=== PATIENT | female | born 1955 | race Caucasian/White ===

== ENCOUNTER 2017-04-15 11:06 | Day surgery (SDC) | payer BC ==
[~2017-04-15] VITALS: Ht 170.2 cm; Wt 103.0 kg
[~2017-04-15 11:06] MED LIST: ASPI1TAB PO; ATOR1TAB19 PO; BISO2.5T PO; CITA20TA4 PO; LOSA100T5 PO
[2017-04-15] MEDS ORDERED: VITA200016 PO (11:22)
[2017-04-15] MEDS ORDERED: LIDOCAINE 2% INJ 100 MG/5 ML SDV (FOR ANES.) As Ordered ONE (11:44)
[2017-04-15] MEDS ORDERED: PROPOFOL 200 MG/20 ML VIAL As Ordered ONE ×2 (11:44→12:57)
[2017-04-15] MEDS ORDERED: NS 1,000 ML IV ONE (11:45)
--- NOTE | 2017-04-15 13:06 | ROOR ---
Patient Name: Betty Low Procedure Date: 04/15/2017 12:31 PM Date of : 1955 Age: 61 Room: [facility] Gender: Female Note Status: Finalized Procedure: Total Colonoscopy to Cecum + Bx.+ Carbon Spot Marking Indications: Change in bowel habits Providers: Lee Elizabeth MD Referring MD: Alen Chan MD Requesting Provider: Medicines: Monitored Anesthesia Care Complications: No immediate complications. Procedure: Pre-Anesthesia Assessment: - The heart rate, respiratory rate, oxygen saturations, blood pressure, adequacy of pulmonary ventilation, and response to care were monitored throughout the procedure. The Colonoscope was introduced through the anus and advanced to the cecum, identified by appendiceal orifice and ileocecal valve. The colonoscopy was performed without difficulty. The patient tolerated the procedure well. The quality of the bowel preparation was excellent. Findings: The perianal and digital rectal examinations were normal. Internal hemorrhoids were found during retroflexion. The hemorrhoids were small. Multiple small and large-mouthed diverticula were found in the recto-sigmoid colon, sigmoid colon and descending colon. Localized severe inflammation characterized by shallow ulcerations was found in the mid ascending colon. Biopsies were taken with a cold forceps for histology. Area was tattooed with an injection of Spot (carbon black). The exam was otherwise without abnormality on direct and retroflexion views. Impression: - Internal hemorrhoids. - Diverticulosis in the recto-sigmoid colon, in the sigmoid colon and in the descending colon. - Localized severe inflammation was found in the mid ascending colon secondary to ischemic colitis. Biopsied. Tattooed. - The examination was otherwise normal on direct and retroflexion views. - The exam was otherwise normal to the cecum. Recommendation: - Patient has a contact number available for emergencies. The signs and symptoms of potential delayed complications were discussed with the patient. Return to normal activities tomorrow. Written discharge instructions were provided to the patient. - High fiber diet. - Discharge patient to home. - Continue present medications. - Await pathology results. - Telephone GI clinic for pathology results in 1 week. - Repeat colonoscopy for surveillance based on pathology results. - Return to referring physician. - The findings and recommendations were discussed with the patient's family. Lee Elizabeth MD Lee Elizabeth MD 04/15/2017 1:05:59 PM This report has been signed electronically. Number of Addenda: 0 Note Initiated On: 04/15/2017 12:31 PM Estimated Blood Loss: Estimated blood loss: none.
[2017-04-15 13:25] VITALS: BP 147/95
== END 2017-04-15 13:35 | disposition home or self-care (01) ==
LOC: M OPP 11:06
PROVIDERS: ATTEND Internal Medicine Gastroenterology
DX: R19.4 Change in bowel habit (principal); K64.8 Other hemorrhoids; K57.30 Diverticulosis of large intestine without perforation or abscess without bleeding; K63.3 Ulcer of intestine; I10 Essential (primary) hypertension; E78.5 Hyperlipidemia, unspecified; Z78.0 Asymptomatic menopausal state; R06.83 Snoring; Z79.82 Long term (current) use of aspirin; Z79.899 Other long term (current) drug therapy

== ENCOUNTER → 2017-05-13 | Outpatient (CLI) | payer BC ==
[~2017-05-13] MED LIST changes: +GASTROGRAFIN SOLUTION 30ML (Q9963) As Ordered ONE; +ISOVUE-370 76% 100ML VIAL (Q9967) As Ordered ONE; +VITA200016 PO
--- NOTE | 2017-05-14 07:29 | REP ---
PRE AND POST CONTRAST CT OF THE ABDOMEN AND PELVIS: CLINICAL HISTORY: Abdominal pain with gastroenteritis and colitis. TECHNIQUE: Axial contrast enhanced images from the lung bases to the pubic symphysis using oral (per protocol) and 100 mL of Isovue 370 intravenous contrast material with precontrast and delayed images of the abdomen as well as coronal and sagittal reformations. COMPARISON: None. FINDINGS: The lung bases are clear. The visualized heart and pericardium are normal. Liver, spleen, pancreas, bilateral adrenal glands and kidneys are normal. The patient is status post cholecystectomy. A moderate hiatal hernia is identified at the gastroesophageal junction. The stomach and duodenum are otherwise unremarkable by CT evaluation. The small bowel is without obstruction or acute inflammatory process and the normal terminal ileum is identified in the right lower quadrant. The colon is grossly unremarkable with the exception of scattered colonic diverticula. The cecum and appendix are normal. Evaluation of the pelvis demonstrates partially collapsed normal bladder and age appropriate uterus/adnexa. No pelvic fluid or ascites. No adenopathy. No solitary mass lesion identified. The abdominal aorta and vasculature appears normal and without aneurysm or dissection. Musculoskeletal structures demonstrate age-related degenerative change without focal osseous abnormality. IMPRESSION: 1. Moderate hiatal hernia. 2. Colonic and sigmoid diverticulosis without evidence for acute diverticulitis. No further abnormality to the small and large bowel identified. 3. No further acute abdominopelvic pathology appreciated. Unreviewed
== END ==
LOC: M RAD 09:00
PROVIDERS: ATTEND Surgery
DX: K52.9 Noninfective gastroenteritis and colitis, unspecified (principal)
CPT/HCPCS: 74178; Q9963; Q9967

== ENCOUNTER → 2017-05-15 | Outpatient (CLI) | payer BC ==
[~2017-05-15] MED LIST changes: -GASTROGRAFIN SOLUTION 30ML (Q9963) As Ordered ONE; -ISOVUE-370 76% 100ML VIAL (Q9967) As Ordered ONE
--- NOTE | 2017-05-15 09:25 | REP ---
Right shoulder three views: Mineralization is normal. Acromioclavicular joint is unremarkable. The glenohumeral joint is unremarkable. The subacromial space is normally maintained. There are no calcifications or foreign bodies. There is no fracture or dislocation. Impression: Negative plain film study of the right shoulder. Signed by Patrick Giraldo MD 05/15/2017 09:16 A
== END ==
LOC: M CLY 08:36
PROVIDERS: ATTEND Family Medicine
DX: M75.41 Impingement syndrome of right shoulder (principal)

== ENCOUNTER → 2017-05-18 | Outpatient (REF) | payer BC ==
[2017-05-18 11:41] LABS: BASO # 0.1 10^3/uL (0.0-0.2); BASO % 1.4 % (0.0-1.0); EOS # 0.1 10^3/uL (0.0-0.50); EOS % 2.4 % (0.0-3.0); IMMATURE GRANULOCYTE % 0.4 % (0-0); LYMPH # 1.8 10^3/uL (1.5-4.5); LYMPH % 35.9 % (24.0-44.0); MEAN CORPUSCULAR HEMOGLOBIN 30.6 pg (27.0-33.0); MEAN CORPUSCULAR HGB CONC 33.7 g/dl (32.0-36.5); MEAN CORPUSCULAR VOLUME 90.8 fl (80.0-96.0); MONO # 0.4 10^3/uL (0.0-0.8); MONO % 8.5 % (0.0-5.0); NEUTROPHILS # 2.6 10^3/uL (1.8-7.7); NEUTROPHILS % 51.4 % (36.0-66.0); PLATELET COUNT, AUTOMATED 229 10^3/uL (150-450); RED CELL DISTRIBUTION WIDTH 12.7 % (11.5-14.5); WHITE BLOOD COUNT 5.1 10^3/uL (4.0-10.0)
[2017-05-18 12:19] LABS: ALBUMIN 3.6 GM/DL (3.2-5.2); ALBUMIN/GLOBULIN RATIO 0.97 (1.00-1.93); ALKALINE PHOSPHATASE 87 U/L (45-117); ALT/SGPT 28 U/L (12-78); ANION GAP 6 MEQ/L (8-16); AST/SGOT 18 U/L (7-37); BILIRUBIN,TOTAL 0.5 MG/DL (0.2-1.0); BLOOD UREA NITROGEN 15 MG/DL (7-18); CALCIUM LEVEL 9.1 MG/DL (8.8-10.2); CARBON DIOXIDE LEVEL 31 MEQ/L (21-32); CHLORIDE LEVEL 103 MEQ/L (98-107); CREATININE FOR GFR 0.88 MG/DL (0.55-1.02); GLOMERULAR FILTRATION RATE > 60.0 (>45); GLUCOSE, FASTING 114 MG/DL (80-110); SODIUM LEVEL 140 MEQ/L (136-145); TOTAL PROTEIN 7.3 GM/DL (6.4-8.2)
== END ==
LOC: M SFHCCLAY 08:37
PROVIDERS: ATTEND Family Medicine
DX: K55.9 Vascular disorder of intestine, unspecified (principal); I10 Essential (primary) hypertension; E78.2 Mixed hyperlipidemia; K52.9 Noninfective gastroenteritis and colitis, unspecified

== ENCOUNTER → 2018-01-02 | Outpatient (REF) | payer BC ==
[2018-01-02 21:38] LABS: APPEARANCE, URINE CLOUDY (CLEAR); BACTERIA, URINE AUTO 3+ (NEGATIVE); BILIRUBIN, URINE AUTO NEGATIVE (NEGATIVE); BLOOD, URINE BLOOD NEGATIVE (NEGATIVE); COLOR, URINE YELLOW (YELLOW); GLUCOSE, URINE (UA) AUTO NEGATIVE (NEGATIVE); KETONE, URINE AUTO NEGATIVE (NEGATIVE); LEUKOCYTE ESTERASE, URINE AUTO 1+ (NEGATIVE); NITRITE, URINE AUTO POSITIVE (NEGATIVE); PROTEIN, URINE AUTO NEGATIVE (NEGATIVE); RBC, URINE AUTO 3 /HPF (0-3); SPECIFIC GRAVITY URINE AUTO 1.014 (1.002-1.035); SQUAMOUS EPITHELIAL CELL UR AU 1 /HPF (0-6); UROBILINOGEN, URINE AUTO 0.2 mg/dL (0.0-2.0); WBC, URINE AUTO 74 /HPF (0-3)
== END ==
LOC: M LAB REF 21:17
DX: N39.0 Urinary tract infection, site not specified (principal)
CPT/HCPCS: 81001

== ENCOUNTER → 2018-04-09 | Outpatient (CLI) | payer BC | LOC: M RAD 10:30 | DX: Z12.31 Encounter for screening mammogram for malignant neoplasm of breast (principal) | CPT/HCPCS: 77067 ==

== ENCOUNTER → 2018-05-19 | Outpatient (REF) | payer BC ==
[2018-05-19 11:39] LABS: HEMATOCRIT 39.4 % (36.0-47.0); HEMOGLOBIN 13.3 g/dl (12.0-15.5); MEAN CORPUSCULAR HEMOGLOBIN 31.6 pg (27.0-33.0); MEAN CORPUSCULAR HGB CONC 33.8 g/dl (32.0-36.5); MEAN CORPUSCULAR VOLUME 93.6 fl (80.0-96.0); PLATELET COUNT, AUTOMATED 245 10^3/uL (150-450); RED BLOOD COUNT 4.21 10^6/uL (4.00-5.40); RED CELL DISTRIBUTION WIDTH 12.1 % (11.5-14.5); WHITE BLOOD COUNT 6.1 10^3/uL (4.0-10.0)
[2018-05-19 11:54] LABS: ALBUMIN 3.3 GM/DL (3.2-5.2); ALBUMIN/GLOBULIN RATIO 0.92 (1.00-1.93); ALKALINE PHOSPHATASE 93 U/L (45-117); ALT/SGPT 33 U/L (12-78); ANION GAP 7 MEQ/L (8-16); AST/SGOT 17 U/L (7-37); BILIRUBIN,TOTAL 0.4 MG/DL (0.2-1.0); BLOOD UREA NITROGEN 17 MG/DL (7-18); CALCIUM LEVEL 8.5 MG/DL (8.8-10.2); CARBON DIOXIDE LEVEL 29 MEQ/L (21-32); CHLORIDE LEVEL 104 MEQ/L (98-107); CHOLESTEROL LEVEL 164 MG/DL (<200); CHOLESTEROL RISK RATIO 2.827 (<5); CREATININE FOR GFR 0.85 MG/DL (0.55-1.30); GLOMERULAR FILTRATION RATE > 60.0 (>45); GLUCOSE, FASTING 103 MG/DL (70-100); HDL CHOLESTEROL 58 MG/DL (>40); LDL CHOLESTEROL 78 MG/DL (<100); NON-HDL-C 106 MG/DL; POTASSIUM SERUM 4.1 MEQ/L (3.5-5.1); SODIUM LEVEL 140 MEQ/L (136-145); TOTAL PROTEIN 6.9 GM/DL (6.4-8.2); TRIGLYCERIDES LEVEL 138 MG/DL (<150)
[2018-05-19 16:33] LABS: ESTIMATED AVERAGE GLUCOSE 126 MG/DL (60-110)
== END ==
LOC: M SFHCCLAY 07:56
DX: K55.9 Vascular disorder of intestine, unspecified (principal); I10 Essential (primary) hypertension; E78.2 Mixed hyperlipidemia; R73.01 Impaired fasting glucose
CPT/HCPCS: 84443

== ENCOUNTER → 2018-05-21 | Outpatient (REF) | payer BC ==
[2018-05-21 16:44] LABS: TOTAL PROTEIN 7.2 GM/DL (6.4-8.2)
[2018-05-24 11:51] LABS: ALBUMIN 3.97 GM/DL (3.29-5.55); ALBUMIN % 55.2 % (55.8-66.1); ALPHA-1-GLOBULIN % 4.8 % (2.9-4.9); ALPHA-1-GLOBULINS 0.35 GM/DL (0.17-0.41); ALPHA-2-GLOBULINS 0.82 GM/DL (0.42-0.99); ALPHA-2-GLOBULINS % 11.4 % (7.1-11.8); BETA-1-GLOBULINS 0.52 GM/DL (0.28-0.60); BETA-1-GLOBULINS % 7.2 % (4.7-7.2); BETA-2-GLOBULINS 0.47 GM/DL (0.19-0.55); BETA-2-GLOBULINS % 6.5 % (3.2-6.5); GAMMA GLOBULIN % 14.9 % (11.1-18.8); GAMMA GLOBULINS 1.07 GM/DL (0.65-1.58)
== END ==
LOC: M SFHCCLAY 11:39
PROVIDERS: ATTEND Family Medicine
DX: D89.2 Hypergammaglobulinemia, unspecified (principal)

== ENCOUNTER → 2018-12-02 | Outpatient (REF) | payer BC ==
[~2018-12-02] MED LIST changes: -ASPI1TAB PO; +ASPI81TA26 PO; -CITA20TA4 PO; +CITA20TA6 PO
[2018-12-02 16:45] LABS: HEMATOCRIT 41.1 % (36.0-47.0); HEMOGLOBIN 13.6 g/dl (12.0-15.5); MEAN CORPUSCULAR HEMOGLOBIN 30.9 pg (27.0-33.0); MEAN CORPUSCULAR HGB CONC 33.1 g/dl (32.0-36.5); MEAN CORPUSCULAR VOLUME 93.4 fl (80.0-96.0); PLATELET COUNT, AUTOMATED 220 10^3/uL (150-450); WHITE BLOOD COUNT 6.9 10^3/uL (4.0-10.0)
== END ==
LOC: M SFHCCLAY 09:52
PROVIDERS: ATTEND Family Medicine
DX: K55.9 Vascular disorder of intestine, unspecified (principal)

== ENCOUNTER → 2019-04-11 | Outpatient (REF) | payer BC ==
[2019-04-14 14:13] LABS: HPV HYBRID CAPTURE II Negative (Negative)
== END ==
LOC: M LAB REF 19:51
PROVIDERS: ATTEND Advanced Practice Midwife
DX: Z12.4 Encounter for screening for malignant neoplasm of cervix (principal)
CPT/HCPCS: 87624; G0123

== ENCOUNTER → 2019-04-11 | Outpatient (CLI) | payer BC ==
--- NOTE | 2019-04-11 13:37 | REPMRS ---
Patient History The patient states she had a clinical breast exam in April 2019.Family history of unknown cancer at age 81 in mother. Benign excisional biopsy of the right breast. Took hormonal contraceptives for 5 years. Took unspecified hormones for 10 years. Digital Mammo Screening Bilat: April 11, 2019 - Exam #: [id number] Bilateral CC and MLO view(s) were taken. Technologist: Blsosom Jauregui, Technologist Prior study comparison: April 09, 2018, bilateral digital mammo screening bilat performed at [facility]. April 06, 2017, bilateral digital mammo screening bilat performed at [facility]. March 31, 2016, bilateral digital mammo screening bilat performed at [facility]. FINDINGS: There are scattered fibroglandular densities. There has been no change in the appearance of the mammogram from the prior studies. There is a mild amount of scattered fibroglandular density which is fairly symmetric. There is no interval development of dominant mass, architectural distortion, or grouped microcalcification suggestive of malignancy. 3-D tomosynthesis shows no additional findings. Assessment: BI-RADS/ACR category 1 mammogram. Negative Mammogram. Recommendation Routine screening mammogram of both breasts in 1 year (for women over age 40). This patient's Lifetime Breast Cancer Risk is estimated at 5.0 %. This mammogram was interpreted with the aid of an FDA-approved computer-aided dectection system. Electronically Signed By: Franky Calvin MD 04/11/19 [id number]
== END ==
LOC: M RAD 12:51
PROVIDERS: ATTEND Advanced Practice Midwife
DX: Z12.31 Encounter for screening mammogram for malignant neoplasm of breast (principal)

== ENCOUNTER → 2019-05-17 | Outpatient (REF) | payer BC ==
[2019-05-17 13:22] LABS: ALBUMIN 3.6 GM/DL (3.2-5.2); ALT/SGPT 30 U/L (12-78); BILIRUBIN,TOTAL 0.6 MG/DL (0.2-1.0); BLOOD UREA NITROGEN 18 MG/DL (7-18); CARBON DIOXIDE LEVEL 32 MEQ/L (21-32); CHLORIDE LEVEL 103 MEQ/L (98-107); CHOLESTEROL LEVEL 191 MG/DL (<200); CHOLESTEROL RISK RATIO 2.938 (<5); CREATININE FOR GFR 0.84 MG/DL (0.55-1.30); GLOMERULAR FILTRATION RATE > 60.0 (>45); GLUCOSE, FASTING 122 MG/DL (70-100); HDL CHOLESTEROL 65 MG/DL (>40); LDL CHOLESTEROL 93 MG/DL (<100); NON-HDL-C 126 MG/DL; POTASSIUM SERUM 3.6 MEQ/L (3.5-5.1); SODIUM LEVEL 140 MEQ/L (136-145); TOTAL PROTEIN 6.9 GM/DL (6.4-8.2); TRIGLYCERIDES LEVEL 164 MG/DL (<150)
== END ==
LOC: M SFHCCLAY 07:51
PROVIDERS: ATTEND Family Medicine
DX: I10 Essential (primary) hypertension (principal); E78.2 Mixed hyperlipidemia; K55.9 Vascular disorder of intestine, unspecified

== ENCOUNTER → 2019-12-22 | Outpatient (REF) | payer BC ==
[~2019-12-22] MED LIST changes: +ACET-897 PO; +BISO1TAB17 PO; +CALC600T60 PO; +D31000TA2 PO; +MULT-90 PO; +PERC5TAB12 PO; +PROBCAP14 PO; +XARE10TA PO
== END ==
LOC: M SFHCCLAY 09:05
PROVIDERS: ATTEND Family Medicine
DX: R30.0 Dysuria (principal)

== ENCOUNTER → 2020-02-07 | Outpatient (CLI) | payer BC ==
[2020-02-07 13:37] LABS: HEMATOCRIT 41.4 % (36.0-47.0); HEMOGLOBIN 13.7 g/dl (12.0-15.5); MEAN CORPUSCULAR HEMOGLOBIN 31.3 pg (27.0-33.0); MEAN CORPUSCULAR HGB CONC 33.1 g/dl (32.0-36.5); MEAN CORPUSCULAR VOLUME 94.5 fl (80.0-96.0); PLATELET COUNT, AUTOMATED 199 10^3/uL (150-450); RED BLOOD COUNT 4.38 10^6/uL (4.00-5.40); WHITE BLOOD COUNT 4.9 10^3/uL (4.0-10.0)
[2020-02-07 13:44] LABS: ALBUMIN 3.7 GM/DL (3.2-5.2); ALT/SGPT 34 U/L (12-78); BILIRUBIN,TOTAL 0.5 MG/DL (0.2-1.0); BLOOD UREA NITROGEN 14 MG/DL (7-18); CALCIUM LEVEL 9.4 MG/DL (8.8-10.2); CARBON DIOXIDE LEVEL 31 MEQ/L (21-32); CHLORIDE LEVEL 104 MEQ/L (98-107); CREATININE FOR GFR 0.76 MG/DL (0.55-1.30); GLOMERULAR FILTRATION RATE > 60.0 (>45); GLUCOSE, FASTING 109 MG/DL (70-100); INR 0.94; POTASSIUM SERUM 4.3 MEQ/L (3.5-5.1); PROTHROMBIN TIME 12.8 SECONDS (11.8-14.0); SODIUM LEVEL 141 MEQ/L (136-145)
[2020-02-07 14:24] LABS: ERYTHROCYTE SEDIMENTATION RATE 21 mm/hr (0-30)
--- NOTE | 2020-03-06 13:47 | REP ---
CHEST X-RAY: CLINICAL: Preoperative assessment. TECHNIQUE: PA and lateral views COMPARISON: 10/20/14 FINDINGS: Mediastinum and cardiac silhouette are normal. Lung reich are clear. No consolidation, effusion or pneumothorax. Skeletal structures are intact. IMPRESSION: Normal chest x-ray. No acute cardiopulmonary process. MTDD
== END ==
LOC: M WUC 10:20
PROVIDERS: ATTEND Orthopaedic Surgery
DX: Z01.818 Encounter for other preprocedural examination (principal)

== ENCOUNTER → 2020-02-10 | Outpatient (CLI) | payer BC | LOC: M LABSMTC 13:57 | PROVIDERS: ATTEND Anesthesiology | DX: Z11.59 Encounter for screening for other viral diseases (principal) ==

== ENCOUNTER 2020-02-15 09:14 | Inpatient (IN) | payer BC ==
[~2020-02-15] VITALS: Ht 170.2 cm; Wt 110.7 kg
[~2020-02-15 09:14] MED LIST changes: -ACET-897 PO; -CALC600T60 PO; -PERC5TAB12 PO; -XARE10TA PO; +amLODIPine 5 MG TAB PO SCH; +ceFAZolin SOD 2 GM in IV 1 EA IV ONE
[2020-02-15] MEDS ORDERED: ACET-897 PO (10:13)
[2020-02-15] MEDS ORDERED: propofoL 200 MG/20 ML VIAL As Ordered ONE ×3 (11:00→13:43)
[2020-02-15] MEDS ORDERED: LIDOCAINE 2% 100MG/5ML SDV (FOR ANES.) As Ordered ONE (11:00)
[2020-02-15] MEDS ORDERED: MIDAZOLAM INJ 2MG/2ML VIAL (J2250 PER 1MG) As Ordered ONE (11:17)
[2020-02-15] MEDS ORDERED: fentaNYL 100 MCG/2 ML INJECTION (J3010) As Ordered ONE (11:17)
[2020-02-15] MEDS: MIDAZOLAM INJ 2MG/2ML VIAL (J2250 PER 1MG) IV PRN ×2 (11:36→11:41)
[2020-02-15] MEDS ORDERED: TRANEXAMIC ACID 100 MG/ML 10ML VIAL As Ordered ONE (12:18)
[2020-02-15] MEDS ORDERED: ceFAZolin 1GM VIAL (J0690 PER 500MG) As Ordered ONE (12:19)
[2020-02-15] MEDS ORDERED: EPINEPHrine INJ 1 MG/ML 1ML AMP As Ordered ONE (12:19)
[2020-02-15] MEDS ORDERED: BUPIVACAINE LIPOSOME/PF 1.3% 20ML VIAL (13.3MG/ML)(EXPAREL)(C9290 PER1MG) As Ordered ONE (12:19)
[2020-02-15] MEDS ORDERED: fentaNYL 100 MCG/2 ML INJECTION (J3010) IV PRN ×2 (12:30→14:30)
[2020-02-15] MEDS ORDERED: ONDANSETRON 4MG/2ML VIAL As Ordered ONE (13:11)
[2020-02-15] MEDS ORDERED: dexameTHASONE 4 MG/ML 1ML VIAL (J1100 PER 1MG) As Ordered ONE (13:11)
[2020-02-15] MEDS ORDERED: METOCLOPRAMIDE INJ 10MG/2ML VIAL (J2765 PER 1) As Ordered ONE (13:11)
[2020-02-15] MEDS ORDERED: ROPIvacaine 0.5% 30ML INJECTION (J2795 PER 1MG) ONE (13:50)
[2020-02-15] MEDS ORDERED: dexameTHASONE 10MG/1ML VIAL PRES.FREE (J1100 PER 1MG) ONE (13:50)
[2020-02-15] MEDS ORDERED: LIDOCAINE 1% MDV 20ML VIAL ONE (13:50)
[2020-02-15] MEDS ORDERED: oxyCODONE 5MG TAB PO PRN (14:30)
[2020-02-15] MEDS ORDERED: ONDANSETRON 4MG/2ML VIAL IV PRN ×2 (14:30→14:45)
[2020-02-15] MEDS ORDERED: LR 1,000 ML IV SCH ×2 (14:30→14:45)
[2020-02-15] MEDS ORDERED: MORPHINE 4 MG/ML 1ML VIAL/SYRINGE (J2270) IV PRN (14:45)
[2020-02-15] MEDS ORDERED: ACETAMINOPHEN TAB 650MG DOSE (2X325MG) PO PRN (14:45)
[2020-02-15] MEDS ORDERED: MORPHINE 2 MG/ML 1ML VIAL (J2270) IV PRN (14:45)
--- NOTE | 2020-02-15 14:52 | REPVR ---
PROCEDURE INFORMATION: Exam: XR Left Knee Exam date and time: 02/15/2020 2:40 PM Age: 64 years old Clinical indication: Screening exam; Post op; Prior surgery; Surgery date: Post-operative (0-2 days); Additional info: Post op in pacu TECHNIQUE: Imaging protocol: XR Left knee. Views: 1 or 2 views. COMPARISON: No relevant prior studies available. FINDINGS: Bones/joints: Left TKA. Hardware appears intact. Superior patellar enthesophyte. No acute fracture. No dislocation. Soft tissues: Ventral skin von. Expected postsurgical changes in the soft tissues. IMPRESSION: Intact left TKA. Electronically signed by: Crystal Mendez On 02/15/2020 14:51:59 PM
[2020-02-15 15:30] VITALS: BP 153/69
[2020-02-15 16:00] VITALS: BP 125/55
--- NOTE | 2020-02-15 16:01 | HPEPDOC ---
General Date of Admission Feb 15, 2020 at 09:14 Date of Service: Feb 15, 2020 Chief Complaint The patient is a 64-year-old female admitted with a reason for visit of Osteoarthritis Left Knee. History of Present Illness Consultation report Consultation requested By orthopedics. Consultation for the management of medical comorbidities. HPI: 64 year old female with advanced OA, HTN, depression, Obesity, Hyp erlipidemia admitted for elective left total knee replacement. Patient had an uneventful surgery. Hospitalist consulted for management of medical comorbidities. Patient seen in PACU after surgery. No pain, Got addector block and also local block. Denies any nausea or vomiting, denies any chest pain or sob Home Medications Scheduled Aspirin (Aspirin EC) 81 Mg Tab, 81 MG PO DAILY, (Reported) Atorvastatin Calcium (Atorvastatin Calcium) 10 Mg Tab, 10 MG PO DAILY, (Reported) Bisoprolol/Hydrochlorothiazide (Bisoprolol-Hctz 2.5-6.25 mg Tb) 1 Each Tablet, 1 TAB PO DAILY, (Reported) Cholecalciferol (Vitamin D3) (Vitamin D3) 1,000 Unit Tablet, 2,000 UNITS PO DAILY, (Reported) Citalopram Hydrobromide (Citalopram HBr) 20 Mg Tab, 40 MG PO DAILY, (Reported) Lactobacillus Acidophilus (Probiotic) 1 Each Capsule, 1 CAP PO DAILY, (Reported) Losartan/Hydrochlorothiazide (Losartan-Hctz 100-25 mg Tab) 1 Tab Tab, 1 TAB PO DAILY, (Reported) Multivitamin (Multivitamin) 1 Each Tablet, 1 EACH PO DAILY, (Reported) Miscellaneous Medications Acetaminophen (Tylenol Extra Strength) 500 Mg Tablet, 500 MG PO, (Reported) Allergies Coded Allergies: No Known Allergies (Unverified , 04/13/17) Past Medical History Medical History DEPRESSION OSTEOARTHRITIS LEFT HIP DIVERTICULOSIS HTN SYMPTOMATIC HEMORRHOID PLANTAR FASCIAL FIBROMATOSIS Hyperlipidemia Obesity Surgical History LUMPECTOMY LEFT BREAST BENIGN HEEL SPUR RIGHT FOOT 1998 BLADDER TUCK COLONOSCOPY 2004, DR. MAN. GALLBLADDER LEFT FOOT HEEL SPUR REMOVED. 04/18/2010 LEAP PROCEDURE Family History FATHER: , UNKNOWN MOTHER: , DM, KIDNEY CA., DJD MOTHER, SIBLINGS: DJD IN SIBS AT FAIRLY EARLY AGE. 7 BROTHER(S) , 1 SISTER(S) . 2DAUGHTER(S) . DIABETES, HTN, HEART DISEASE, KIDNEY CANCER. Social History * Smoker: former Smoker Alcohol: occationally Drugs: denies A-FIB/CHADSVASC A-FIB History Current/History of A-Fib/PAF?: No Review of Systems Constitutional: Denies: Chills, Fever, Night Sweats Eyes: Denies: Pain, Vision change ENT: Denies: Head Aches, Ear Pain, Dysphagia Skin: Denies: Rash, Lesions, Breakdown Pulmonary: Denies: Dyspnea, Cough Cardiovascular: Denies: Chest Pain, Palpitations, Orthopnea, Paroxysmal Noc. Dyspnea, Lt Headedness Gastrointestinal: Denies: Nausea, Vomiting, Abdominal Pain, Diarrhea Genitourinary: Denies: Dysuria, Frequency, Incontinence, Retention Hematologic: Denies: Bruising, Bleeding Excessively Physical Examination General Exam: Positive: Alert, Cooperative, No Acute Distress Eye Exam: Positive: PERRLA, Conjunctiva & lids normal, EOMI; Negative: Sclera icteric ENT Exam: Positive: Atraumatic, Mucous membr. moist/pink, Pharynx Normal Neck Exam: Positive: Supple; Negative: JVD, thyromegaly Chest Exam: Positive: Clear to auscultation, Normal air movement Heart Exam: Positive: Rate Normal, Regular Rhythm, Normal S1, Normal S2; Negative: Murmurs, Rubs Telemetry: Positive: No significant arrhythmia Abdomen Exam: Positive: Normal bowel sounds, Soft; Negative: Tenderness, Hepatospenomegaly Extremity Exam: Positive: Normal pulses; Negative: Clubbing, Cyanosis, Edema Skin Exam: Positive: Nl turgor and temperature; Negative: Breakdown, Lesion Vital Signs Vital Signs Date Time Temp Pulse Resp B/P (MAP) Pulse Ox O2 Delivery O2 Flow Rate FiO2 02/15/20 12:30 57 18 146/67 (93) 99 Nasal Cannula 3 02/15/20 09:42 98.0 Assessment/Plan 64 year old female with advanced OA, HTN, depression, Obesity, Hyperlipidemia admitted for elective left total knee replacement. Patient had an uneventful surgery. Hospitalist consulted for management of medical comorbidities. S/p Left Total Knee Replacement pain control and dvt prophylaxis as epr Ortho PT/OT Hypertension continue bisoprolol will hold losartan and HCTZ for today will give amlodipine if needed Depression continue citalopram Hyperlipidemia continue statin. Plan / VTE VTE Prophylaxis Ordered?: Yes RANULFO DILLARD MD Feb 15, 2020 13:23
[2020-02-15 17:00] VITALS: BP 127/55
--- NOTE | 2020-02-15 17:42 | HPE ---
DATE OF ADMISSION: 02/15/2020 ATTENDING: Leo Duffy MD CHIEF COMPLAINT: Left knee pain. HISTORY OF PRESENT ILLNESS: Betty is a pleasant 64-year-old female with progressively worsening left knee pain and stiffness. She has failed to improve with conservative treatment. She has elected for surgery for her continued symptoms. She has pain with weightbearing activities and her activities of daily living. X-rays of her knee are notable for advanced osteoarthritis of the left knee joint. She is consented for a left total knee arthroplasty by Dr. Leo Duffy. Medical optimization was performed by Dr. Chan. ALLERGIES: None. CURRENT MEDICATIONS: - Atorvastatin 10 mg once a day. - Citalopram 20 mg once a day. - Losartan 100/25 mg once a day. - Bisoprolol 2.5/6.25 mg once a day. - Probiotic supplement once a day. - Baby aspirin once a day. - Adult multivitamin once a day. - Vitamin D 2000 units once a day. PAST MEDICAL HISTORY: 1. Hypertension. 2. Hyperlipidemia. 3. Anxiety. PAST SURGICAL HISTORY: 1. Cholecystectomy. 2. Bladder suspension. SOCIAL HISTORY: Lissette is retired, does not smoke, and occasionally drinks alcohol. FAMILY HISTORY: Noncontributory. REVIEW OF SYSTEMS: This patient denies chest pain, heart palpitations, cough, wheezing, difficulty breathing, or shortness of breath. She denies abdominal pain, nausea, vomiting, diarrhea, or constipation. She denies upper respiratory infection or urinary tract infection symptoms. She does complain of persistent pain in the left knee. PHYSICAL EXAMINATION: GENERAL: She is a well-nourished, well-developed, in no acute distress, alert female patient. She walks with a moderate limp favoring the left lower extremity. She is using a single leg cane. VITAL SIGNS: She is 5 feet 7 inches and weighs 240 pounds, temperature 97.5, blood pressure 112/88, pulse 88, and respirations 18. NECK: Supple without adenopathy or jugular venous distention. There were no carotid bruits appreciated upon auscultation. LUNGS: Clear to auscultation without rales or wheezes throughout. HEART: Regular rate and rhythm. ABDOMEN: Bowel sounds were present. EXTREMITIES: Examination of the knee revealed intact skin. She had decreased range of motion due to pain and stiffness. The limb was neurovascularly intact. LABORATORY DATA: EKG showed normal sinus rhythm at 70 beats per minute. Pro time was 12.8, INR 0.94. Glucose 109, BUN 14, creatinine 0.76, sodium 141, potassium 4.3. CBC was within normal limits. Sed rate was 21. We are pending a chest x-ray result. IMPRESSION: Symptomatic osteoarthritis of the left knee joint. PLAN: Consented for a left total knee arthroplasty by Dr. Leo Duffy pending x-rays results. [facility]
[2020-02-15 18:00] VITALS: BP 124/62
[2020-02-15 18:32] VITALS: BP 126/55
[2020-02-15 20:00] VITALS: BP 125/63
[2020-02-15] MEDS: ceFAZolin SOD 2 GM in IV 1 EA IV SCH (20:20)
[2020-02-15] MEDS: PERCOCET 5MG/325MG TAB PO PRN (20:20)
[2020-02-16 02:00] VITALS: BP 138/54
[2020-02-16] MEDS: PERCOCET 5MG/325MG TAB PO PRN ×2 (02:30→11:40)
[2020-02-16] MEDS: ceFAZolin SOD 2 GM in IV 1 EA IV SCH (04:51)
[2020-02-16 06:00] VITALS: BP 146/57
[2020-02-16] MEDS ORDERED: XARE10TA PO (06:36)
[2020-02-16] MEDS ORDERED: PERC5TAB12 PO (06:36)
[2020-02-16 06:39] LABS: HEMATOCRIT 34.3 % (36.0-47.0); HEMOGLOBIN 11.5 g/dl (12.0-15.5); MEAN CORPUSCULAR HEMOGLOBIN 31.3 pg (27.0-33.0); MEAN CORPUSCULAR HGB CONC 33.5 g/dl (32.0-36.5); MEAN CORPUSCULAR VOLUME 93.5 fl (80.0-96.0); PLATELET COUNT, AUTOMATED 190 10^3/uL (150-450); RED BLOOD COUNT 3.67 10^6/uL (4.00-5.40); WHITE BLOOD COUNT 12.2 10^3/uL (4.0-10.0)
[2020-02-16 07:16] LABS: BLOOD UREA NITROGEN 12 MG/DL (7-18); CALCIUM LEVEL 8.6 MG/DL (8.8-10.2); CARBON DIOXIDE LEVEL 29 MEQ/L (21-32); CHLORIDE LEVEL 105 MEQ/L (98-107); CREATININE FOR GFR 0.77 MG/DL (0.55-1.30); GLOMERULAR FILTRATION RATE > 60.0 (>45); GLUCOSE, FASTING 144 MG/DL (70-100); POTASSIUM SERUM 3.9 MEQ/L (3.5-5.1); SODIUM LEVEL 137 MEQ/L (136-145)
[2020-02-16] MEDS ORDERED: CitaloPRAM (CeleXA) 20 MG TAB PO SCH (09:00)
[2020-02-16] MEDS ORDERED: MOM 30ML SUSPENSION UDC PO SCH (09:00)
[2020-02-16] MEDS ORDERED: LOSARTAN 50MG TABLET PO SCH (09:00)
[2020-02-16] MEDS ORDERED: MIRALAX *UNIT DOSE* 17GM PACKET PO SCH (09:00)
[2020-02-16] MEDS ORDERED: BISOPROLOL FUM 2.5 MG PER 1/2TAB PO SCH (09:00)
[2020-02-16 09:39] VITALS: BP 146/57
--- NOTE | 2020-02-16 11:53 | IPN ---
DATE: 02/15/2020 SUBJECTIVE: Patient seen and examined. She wished to go with a left total knee arthroplasty. She understands the need for this. The risks of bleeding, infection, damage to nerves, vessels, persistent pain, wear loosening, blood clots, medical problems, and among others. [place]
[2020-02-16] MEDS ORDERED: RIVAROXABAN 10 MG TAB (XARELTO) PO SCH (18:00)
[2020-02-17] MEDS ORDERED: XARE10TA PO (12:15)
[2020-02-17] MEDS ORDERED: PERC5TAB12 PO (12:15)
[2020-02-17] MEDS ORDERED: CALC600T60 PO (12:15)
--- NOTE | 2020-03-05 10:09 | RO ---
DATE OF OPERATION: 02/15/2020 PREOPERATIVE DIAGNOSIS: Left knee osteoarthritis. POSTOPERATIVE DIAGNOSIS: Left knee osteoarthritis. PROCEDURE: Left total knee arthroplasty; ATTUNE rotating platform, size 5 femur, size 4 tibia, 8 polyethylene, 32 patellar button, posterior stabilized. SURGEON: Leo Duffy M.D. SHIPPING INSPECTOR: EDNA Walker ANESTHESIA: Spinal. ESTIMATED BLOOD LOSS: 50. COMPLICATIONS: None. INDICATIONS: A 64 year old with gradually worsening knee pain with severe arthritis and wished to go ahead with knee replacement. The assistant infant teacher was instrumental in holding the retractors, and assisting in mixing the bone cement, and assisting in wound closure. PROCEDURE: The patient was taken to the operating room and placed in the supine position after spinal anesthesia was induced. The left lower extremity was prepped and draped in the usual sterile fashion. A timeout was performed, and tourniquet was inflated. I created a longitudinal incision over the anterior aspect of the knee and sharply dissection down through subcutaneous tissue, which was fairly copious. I did a medial parapatellar arthrotomy and everted the patella with some difficulty, and flexed the knee up. Her obesity made this more challenging. I used the canal-initiating reamer on the femoral side, used intramedullary guide set at 5 degrees of valgus and 9 mm cut. This was pinned in place and a distal femoral cut was made protecting soft tissues. I sized the femur to be a 5 and the cutting block was secured to the pins that were placed in the end of the femur with some external rotation dialed in. The remaining cuts were made protecting soft tissues. We then prepared the tibia. The tibial alignment guide was placed in an appropriate amount of valgus and posterior slope. This was pinned in place 4 mm off the low side, which was 10 off the high side. The proximal tibia cut was made protecting soft tissues and this bone was removed. I then used a trouble operator to remove soft tissue from either side of the knee, and osteophytes. The soft tissue balance seemed to be appropriate. I had done a medial release. I then used the spacer blocks and was deciding between an 8 and a 10, and decided to trial the components for sizing of the polyethylene with the trial components. Posterior cruciate ligament (PCL) was intact. I then prepared the sulcus cut on the femur with the cutting guide and the saw, and prepared the tibia. The size 4 tray fit nicely. I secured this in place, drilled, broached, and then trial components were placed with the 8 and a 10. The 10 was a little tight in flexion. The polyethylene was spitting out some even though I felt that the PCL was appropriately released. It also felt a little tight in extension so I decided to go with the 8 and this had excellent stability, excellent range of motion. The patella was free-hand cut removing about 7 mm of bone and sized to be a 32. The drill holes were placed and the trial button was placed which tracked very nicely. I also placed the drill holes in the end of the femur. The trial components were removed, the Exparel was injected in the deep tissues. The surfaces were copiously irrigated and dried. The assistant infant teacher prepared the bone cement in the modern technique. I then cemented on the tibia, placed the polyethylene, cemented on the femur and impacted this in place, and then removed all excess bone cement. The patella was cemented in place and held in place with a clamp. I irrigated copiously, placed the TXA in the deep wound and we made sure that the components were well seated and all excess bone cement was removed. Then I began closing the deep layer with #1 Vicryl suture and a running STRATAFIX suture proximally; removed the patellar clamp when the cement was hardened, and closed the remaining with the running STRATAFIX suture. The knee had good range of motion, smooth, had excellent stability and alignment. Patella was tracking nicely. The subcutaneous was irrigated and subcutaneous was closed with 2-0 Vicryl and skin with von. Sterile dressings was applied. The tourniquet had been deflated. She was taken to the recovery room in stable condition. There were no known complications. This was coded as an unusually difficult procedure because her BMI was approximately 38. She had significantly larger soft tissue window and did have severe arthritis. The procedure was more complicated as a result and took extra time. SEBLE
--- NOTE | 2020-04-09 11:14 | DS ---
DATE OF ADMISSION: 02/15/2020 DATE OF DISCHARGE: 02/16/2020 ATTENDING PHYSICIAN: Dr. Leo Duffy ADMITTING DIAGNOSIS: Left knee osteoarthritis. OTHER DIAGNOSES: 1. Hypertension. 2. Hyperlipidemia. 3. Anxiety. DISCHARGE DIAGNOSIS: Left knee osteoarthritis, status post left total knee arthroplasty. HISTORY: Patient is a 64-year-old female who had progressively worsening left knee pain and stiffness. She failed to improve with conservative measures. She continued to have symptoms with weightbearing activities and activities of daily living. She consented for an elective left total knee arthroplasty with Dr. Duffy for her continued symptoms. OPERATION PERFORMED: Left total knee arthroplasty. HOSPITAL COURSE: The patient underwent a left total knee arthroplasty under spinal anesthesia, which was uneventful. Her hospital course was without complication, and she was up with physical therapy per their protocol, weightbearing as tolerated on the left lower extremity. Patient was discharged on oral pain medications and will resume her preoperative medications and diet. She will use her thromboembolic deterrent stockings and take her anticoagulant postoperatively to prevent deep venous thrombosis. Patient will followup in our office in 12-14 days for a wound check and staple removal. She is encouraged to contact our office sooner if there is any increase in pain, redness, drainage, numbness or tingling in the extremity, fever greater than 101 degrees, or any other concerns. Please see medical records for additional details. SEBLE
== END 2020-02-16 13:27 | disposition home or self-care (01) | DRG 302 ==
LOC: M OR 09:14 → M MS5PR 15:18
PROVIDERS: ADMIT Orthopaedic Surgery; ATTEND Orthopaedic Surgery
PROC: 0SRD0J9 Replacement of Left Knee Joint with Synthetic Substitute, Cemented, Open Approach (ICD-10-PCS; principal; 2020-02-15 11:00)
DX: M17.12 Unilateral primary osteoarthritis, left knee (principal); Z79.899 Other long term (current) drug therapy; I10 Essential (primary) hypertension; E78.5 Hyperlipidemia, unspecified; F41.9 Anxiety disorder, unspecified; E66.9 Obesity, unspecified; Z79.82 Long term (current) use of aspirin; K57.30 Diverticulosis of large intestine without perforation or abscess without bleeding; K64.8 Other hemorrhoids; Z87.891 Personal history of nicotine dependence; F32.9 Major depressive disorder, single episode, unspecified

== ENCOUNTER 2020-02-17 08:29 | Observation (INO) | payer BC ==
[~2020-02-17] VITALS: Ht 170.2 cm; Wt 109.1 kg
[~2020-02-17 08:29] MED LIST changes: +ACET-897 PO; +PERC5TAB12 PO; +XARE10TA PO; -amLODIPine 5 MG TAB PO SCH; -ceFAZolin SOD 2 GM in IV 1 EA IV ONE
[2020-02-17 09:09] LABS: BASO # 0.1 10^3/uL (0.0-0.2); BASO % 0.7 % (0.0-1.0); EOS # 0.1 10^3/uL (0.0-0.5); EOS % 0.9 % (0.0-3.0); HEMATOCRIT 33.5 % (36.0-47.0); HEMOGLOBIN 10.9 g/dl (12.0-15.5); LYMPH # 2.2 10^3/uL (1.5-5.0); LYMPH % 30.1 % (24.0-44.0); MEAN CORPUSCULAR HGB CONC 32.5 g/dl (32.0-36.5); MEAN CORPUSCULAR VOLUME 95.2 fl (80.0-96.0); MONO # 0.6 10^3/uL (0.0-0.8); MONO % 7.5 % (0.0-5.0); NEUTROPHILS # 4.5 10^3/uL (1.5-8.5); NEUTROPHILS % 60.4 % (36.0-66.0); PLATELET COUNT, AUTOMATED 161 10^3/uL (150-450); RED BLOOD COUNT 3.52 10^6/uL (4.00-5.40); WHITE BLOOD COUNT 7.5 10^3/uL (4.0-10.0)
--- NOTE | 2020-02-17 09:26 | REPVR ---
PROCEDURE INFORMATION: Exam: US Duplex Left Lower Extremity Veins, Limited Exam date and time: 02/17/2020 9:09 AM Age: 64 years old Clinical indication: Swelling (edema) of limb; Lower extremity, left; Prior surgery; Surgery date: Post-operative (0-2 days); Surgery type: Lt knee replacement on 02/15/2020; Additional info: Post op TECHNIQUE: Imaging protocol: Real-time Duplex ultrasound of the Left Lower Extremity with 2-D vega scale, color Doppler flow and spectral waveform analysis with image documentation. Limited exam focused on the left lower extremity veins. COMPARISON: No relevant prior studies available. FINDINGS: Left deep veins: Unremarkable. The common femoral, femoral, proximal profunda femoral and popliteal veins are patent without thrombus. Normal Doppler waveforms. Normal compressibility and/or augmentation response. Left superficial veins: Unremarkable. Saphenofemoral junction is patent without thrombus. Soft tissues: There is a 7 cm complex collection within the left popliteal fossa. The calf veins were not imaged on this exam. IMPRESSION: 1. No evidence of deep vein thrombosis from the knee superiorly. The calf veins were not imaged on this exam. 2. Large complex collection within the popliteal fossa. In the postoperative setting, underlying infection cannot be excluded. Electronically signed by: Efraín Powers On 02/17/2020 09:26:02 AM
[2020-02-17 09:28] LABS: BLOOD UREA NITROGEN 15 MG/DL (7-18); C REACTIVE PROTEIN QUANTITATIV 2.49 MG/DL (0.00-0.30); CALCIUM LEVEL 8.1 MG/DL (8.8-10.2); CARBON DIOXIDE LEVEL 33 MEQ/L (21-32); CHLORIDE LEVEL 106 MEQ/L (98-107); CREATININE FOR GFR 0.75 MG/DL (0.55-1.30); GLOMERULAR FILTRATION RATE > 60.0 (>45); GLUCOSE, FASTING 88 MG/DL (70-100); POTASSIUM SERUM 3.8 MEQ/L (3.5-5.1); SODIUM LEVEL 141 MEQ/L (136-145)
[2020-02-17 09:39] LABS: ERYTHROCYTE SEDIMENTATION RATE 49 mm/hr (0-30)
[2020-02-17] MEDS ORDERED: PERCOCET 5MG/325MG TAB PO ONE (10:15)
[2020-02-17] MEDS ORDERED: CALC600T60 PO (12:15)
[2020-02-17] MEDS ORDERED: PERC5TAB12 PO (12:15)
[2020-02-17] MEDS ORDERED: XARE10TA PO (12:15)
[2020-02-17] MEDS ORDERED: ACETAMINOPHEN TAB 650MG DOSE (2X325MG) PO PRN (13:00)
[2020-02-17] MEDS ORDERED: CALCIUM CARBONATE 500 MG CHEW U/D PO PRN (13:00)
--- NOTE | 2020-02-17 14:18 | HPEPDOC ---
[facility] Medical History & Physical Date of Admission Feb 17, 2020 Date of Service: Feb 17, 2020 History and Physical Chief complaint: Presented to the ER with with complaints of left knee pain History of present illness: Patient is a 64-year-old female with a PMHx of Advanced OA, HTN, DLP, Depression and Obesity who presented to [facility] on 02/16 because of worsening left knee pain. Patient reported that she had a left knee total arthroplasty completed on 02/15/[address] Miko Duffy. Patient was working with physical therapy on 02/15 and was cleared for discharge home. Patient reported that yesterday evening (02/15), she was walking to the bathroom and experienced worsening left knee pain and had taken a single Percocet without any significant relief. Patient again took another single dose of Percocet at 4 AM (02/16). Patient reported that because of her pain. She came to the ER for further evaluation. In the emergency room. Patient reports that her left knee is a 8/10 without movement and at 12/10 with movement. Patient describes the pain as sharp. Patient denies any redness, warmth or drainage around the knee. Denies any fevers or chills while at home. Patient was given 2 tablets of Percocet in the emergency room and has reported significant improvement of her pain. Patient denies any headache, nausea, vomiting, chest pain, chest breath, palpitations, cough, pain, constipation, diarrhea, or urinary discomfort. Since discharge patient has not experienced any fevers, chills. Patient reports her appetite is fairly normal and denies any changes in her weight. Dr. Miko Duffy was contacted emergency room about imaging findings suspicious for left knee effusion. This likely appear to be typical post-operative findings. Past Medical History: Advanced OA, HTN, DLP, Depression and Obesity Past Surgical History: Lumpectomy of left breast which was noted to be benign Right foot heel spur 1988 Left foot heel spur. 2010 Bladder tuck Colonoscopy 1-2 years ago. 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 Review of Systems: 10 point review of systems complete, all negative otherwise stated in HPI Physical exam: - Vitals: BP [146/74], HR [56], RR [18], Sat [93%RA], Temp [97.2F] - General: Lying in bed, Speaking in full sentences, AAOx3 - HEENT: NC, AT, PERRLA - CVS: RRR, +S1S2 - Lungs: Fair air entry bilaterally, No appreciable wheezing / rales / rhonchi - Abdomen: Soft, Non-distended, Non-tender - Extremities: No lower extremity edema, No calf tenderness - Neuro: No focal motor or sensory deficit - Skin: No visible rashes Assessment and Plan: Left knee pain - likely 2/2 post-operative pain - Clinically reports that her left knee has been having pain with ambulation after her recent total left knee arthroplasty (02/15/2020) - Physical does not reveal any erythema, warmth or drainage - No leukocytosis; slight elevation of CRP at 2.49 - Duplex US 02/16: 1. No evidence of deep vein thrombosis from the knee superiorly. The calf veins were not imaged on this exam. 2. Large complex collection within the popliteal fossa. In the postoperative setting, underlying infection cannot be excluded. - ER providers have discussed case with orthopedic surgery; no evidence of infection, findings consistent with postoperative changes - Will adjust dose of Percocet - Will have physical therapy work with patient; anticipate discharge within next 24 hours Advanced OA - c/w Tylenol HTN - BP well controlled - c/w Bisoprolol, Losartan and HCTZ with holding parameters DLP - c/w Atorvastatin Vitamin D deficiency - c/w Calcium carbonate / Vitamin D supplementation Depression - c/w Citalopram Obesity - BMI of 37.7 - Complicating medical care DVT prophylaxis - Will c/w full anticoagulation with Xaralto (re: post-op medications from orthopedic surgery) Vital Signs Vital Signs Date Time Temp Pulse Resp B/P (MAP) Pulse Ox O2 Delivery O2 Flow Rate FiO2 02/17/20 10:49 16 02/17/20 10:20 56 146/74 (98) 93 Room Air 02/17/20 08:37 97.2 Laboratory Data Labs 24H Laboratory Tests 2 02/17/20 08:56: Immature Granulocyte % (Auto) 0.4, Neutrophils (%) (Auto) 60.4, Lymphocytes (%) (Auto) 30.1, Monocytes (%) (Auto) 7.5H, Eosinophils (%) (Auto) 0.9, Basophils (%) (Auto) 0.7, Neutrophils # (Auto) 4.5, Lymphocytes # (Auto) 2.2, Monocytes # (Auto) 0.6, Eosinophils # (Auto) 0.1, Basophils # (Auto) 0.1, Nucleated Red Blood Cells % (auto) 0.0, Erythrocyte Sedimentation Rate 49H, Anion Gap 2L, Glomerular Filtration Rate > 60.0, Calcium Level 8.1L, C-Reactive Protein, Quantitative 2.49H CBC/BMP Laboratory Tests 02/17/20 08:56 Home Medications Scheduled Atorvastatin Calcium (Atorvastatin Calcium) 10 Mg Tab, 10 MG PO DAILY Bisoprolol/Hydrochlorothiazide (Bisoprolol-Hctz 2.5-6.25 mg Tb) 1 Each Tablet, 1 TAB PO DAILY Calcium Carbonate (Calcium) 600 Mg Tablet, 600 MG PO DAILY Cholecalciferol (Vitamin D3) (Vitamin D3) 1,000 Unit Tablet, 2,000 UNITS PO DAILY Citalopram Hydrobromide (Citalopram HBr) 20 Mg Tab, 40 MG PO DAILY Lactobacillus Acidophilus (Probiotic) 1 Each Capsule, 1 CAP PO DAILY Losartan/Hydrochlorothiazide (Losartan-Hctz 100-25 mg Tab) 1 Tab Tab, 1 TAB PO DAILY Multivitamin (Multivitamin) 1 Each Tablet, 1 EACH PO DAILY Rivaroxaban (Xarelto) 10 Mg Tablet, 10 MG PO QHS FOR 12 DAYS, STARTED 02/16/20 Scheduled PRN Acetaminophen (Tylenol Extra Strength) 500 Mg Tablet, 500 MG PO Q6H PRN for PAIN Oxycodone HCl/Acetaminophen (Percocet 5-325 mg Tablet) 1 Each Tablet, 1 TAB PO Q4H PRN for PAIN Allergies Coded Allergies: No Known Allergies (Unverified , 04/13/17) KAREN BORRERO MD Feb 17, 2020 14:18
[2020-02-17] MEDS: PERCOCET 5MG/325MG TAB PO PRN ×2 (14:56→20:57)
[2020-02-17 15:40] VITALS: BP 141/75
[2020-02-17] MEDS: VITAMIN D 1,000 INTERNATIONAL UNITS TABLET PO SCH (16:59)
[2020-02-17] MEDS: ATORVASTATIN 10 MG TAB PO SCH (16:59)
[2020-02-17] MEDS: CitaloPRAM (CeleXA) 20 MG TAB PO SCH (17:00)
[2020-02-17] MEDS: MULTIVITAMINS/MINERALS THERAP 1 TAB PO SCH (17:01)
[2020-02-17] MEDS: LACTOBACILLUS ACIDOPHILUS CAP (BACID) PO SCH (17:02)
[2020-02-17 19:55] VITALS: BP 130/66
[2020-02-17] MEDS ORDERED: RIVAROXABAN 10 MG TAB (XARELTO) PO SCH (21:00)
[2020-02-17] MEDS ORDERED: hydroCHLOROthiazide 25 MG TAB PO SCH (21:00)
[2020-02-17] MEDS ORDERED: LOSARTAN 50MG TABLET PO SCH (21:00)
[2020-02-18] MEDS: PERCOCET 5MG/325MG TAB PO PRN ×2 (02:56→10:14)
[2020-02-18 05:37] LABS: BASO # 0.1 10^3/uL (0.0-0.2); BASO % 0.7 % (0.0-1.0); EOS # 0.2 10^3/uL (0.0-0.5); EOS % 2.2 % (0.0-3.0); HEMATOCRIT 33.5 % (36.0-47.0); HEMOGLOBIN 10.8 g/dl (12.0-15.5); LYMPH # 2.5 10^3/uL (1.5-5.0); LYMPH % 35.9 % (24.0-44.0); MEAN CORPUSCULAR HEMOGLOBIN 30.9 pg (27.0-33.0); MEAN CORPUSCULAR HGB CONC 32.2 g/dl (32.0-36.5); MONO # 0.6 10^3/uL (0.0-0.8); NEUTROPHILS # 3.6 10^3/uL (1.5-8.5); NEUTROPHILS % 52.1 % (36.0-66.0); PLATELET COUNT, AUTOMATED 181 10^3/uL (150-450); RED BLOOD COUNT 3.49 10^6/uL (4.00-5.40); WHITE BLOOD COUNT 6.9 10^3/uL (4.0-10.0)
[2020-02-18 05:51] VITALS: BP 127/65
[2020-02-18 06:00] LABS: BLOOD UREA NITROGEN 16 MG/DL (7-18); CALCIUM LEVEL 8.9 MG/DL (8.8-10.2); CARBON DIOXIDE LEVEL 34 MEQ/L (21-32); CHLORIDE LEVEL 103 MEQ/L (98-107); CREATININE FOR GFR 0.77 MG/DL (0.55-1.30); GLOMERULAR FILTRATION RATE > 60.0 (>45); GLUCOSE, FASTING 96 MG/DL (70-100); MAGNESIUM LEVEL 2.5 MG/DL (1.8-2.4); POTASSIUM SERUM 4.4 MEQ/L (3.5-5.1); SODIUM LEVEL 138 MEQ/L (136-145)
[2020-02-18] MEDS ORDERED: PERC5TAB12 PO (06:26)
[2020-02-18] MEDS ORDERED: BISOPROLOL FUM 2.5 MG PER 1/2TAB PO SCH (09:00)
[2020-02-18] MEDS ORDERED: FLUBLOK(EGG FREE)(QUAD)INFLUENZA VACC 0.5ML SYRINGE 18YRS & OLDER IM ONE (09:00)
--- NOTE | 2020-02-18 09:10 | DS.PDOC ---
Discharge Summary General Date of Admission Feb 17, 2020 at 08:30 Date of Discharge 02/18/2020 Discharge Summary PROCEDURES PERFORMED DURING STAY: [None]. ADMITTING DIAGNOSE / DISCHARGE DIAGNOSES: Left knee pain - likely 2/2 post-operative pain Advanced OA HTN DLP Vitamin D deficiency Depression Obesity DVT prophylaxis COMPLICATIONS/CHIEF COMPLAINT: Left knee pain HISTORY OF PRESENT ILLNESS: Patient is a 64-year-old female with a PMHx of Advanced OA, HTN, DLP, Depression and Obesity who presented to [facility] on 02/16 because of worsening left knee pain. Patient reported that she had a left knee total arthroplasty completed on 02/15/[address] Miko Duffy. Patient was working with physical therapy on 02/15 and was cleared for discharge home. Patient presented back to the emergency room with worsening left knee pain. She was admitted to the hospitalist service for further evaluation and treatment. Case discussed with orthopedic surgery. HOSPITAL COURSE: Left knee pain - likely 2/2 post-operative pain - Currently, patient reports significant improvement of her left knee pain - Physical again does not reveal any evidence of infection - No leukocytosis; slight elevation of CRP at 2.49 - Duplex US 02/16: 1. No evidence of deep vein thrombosis from the knee superiorly. The calf veins were not imaged on this exam. 2. Large complex collection within the popliteal fossa. In the postoperative setting, underlying infection cannot be excluded. - ER providers have discussed case with orthopedic surgery; no evidence of infec tion, findings consistent with postoperative changes - c/w adjusted dose of Percocet - HSE evaluation today; if cleared will be discharged home with adjusted pain medications and follow up with Orthopedic surgery - Patient has been advised to follow-up with orthopedic surgery and primary care provider within 7 days Advanced OA - c/w Tylenol HTN - BP well controlled - c/w Bisoprolol, Losartan and HCTZ with holding parameters DLP - c/w Atorvastatin Vitamin D deficiency - c/w Calcium carbonate / Vitamin D supplementation Depression - c/w Citalopram Obesity - BMI of 37.7 - Complicating medical care DVT prophylaxis - c/w full anticoagulation with Xaralto (re: post-op medications from orthopedic surgery) DISCHARGE MEDICATIONS: Please see below. ALLERGIES: Please see below. PHYSICAL EXAMINATION ON DISCHARGE: Vitals (See below) General: Sitting up in bed, no acute distress, comfortable, AAOx3 HEENT: NC, AT CVS: RRR, +S1S2 Lungs: Fair air entry b/l, -w/r/r Abdomen: Soft, ND, NT Extremities: R LE is without edema, - Calf tenderness, L knee with mild swelling / no erythema / warmth noted LABORATORY DATA: Please see below. ACTIVITY: [As tolerated]. DISCHARGE PLAN: Patient has been advised to follow-up with orthopedic surgery and primary care provider within 7 days Remain compliant with treatment plan and medications Return to the ER if you experience any problems DISPOSITION: Home with services DISCHARGE CONDITION: [Stable]. TIME SPENT ON DISCHARGE: 35 minutes. Vital Signs/I&Os Vital Signs Date Time Temp Pulse Resp B/P (MAP) Pulse Ox O2 Delivery O2 Flow Rate FiO2 02/18/20 05:51 98.0 70 20 127/65 (85) 97 Room Air I&O- Last 24 Hours up to 6 AM 02/18/20 05:59 Intake Total 1180 ml Balance 1180 ml Laboratory Data Labs 24H Laboratory Tests 2 02/18/20 05:18: Immature Granulocyte % (Auto) 0.1, Neutrophils (%) (Auto) 52.1, Lymphocytes (%) (Auto) 35.9, Monocytes (%) (Auto) 9.0H, Eosinophils (%) (Auto) 2.2, Basophils (%) (Auto) 0.7, Neutrophils # (Auto) 3.6, Lymphocytes # (Auto) 2.5, Monocytes # (Auto) 0.6, Eosinophils # (Auto) 0.2, Basophils # (Auto) 0.1, Nucleated Red Blood Cells % (auto) 0.0, Anion Gap 1L, Glomerular Filtration Rate > 60.0, Calcium Level 8.9, Magnesium Level 2.5H CBC/BMP Laboratory Tests 02/18/20 05:18 Discharge Medications Scheduled Atorvastatin Calcium (Atorvastatin Calcium) 10 Mg Tab, 10 MG PO DAILY, (Reported) Bisoprolol/Hydrochlorothiazide (Bisoprolol-Hctz 2.5-6.25 mg Tb) 1 Each Tablet, 1 TAB PO DAILY, (Reported) Calcium Carbonate (Calcium) 600 Mg Tablet, 600 MG PO DAILY, (Reported) Cholecalciferol (Vitamin D3) (Vitamin D3) 1,000 Unit Tablet, 2,000 UNITS PO DAILY, (Reported) Citalopram Hydrobromide (Citalopram HBr) 20 Mg Tab, 40 MG PO DAILY, (Reported) Lactobacillus Acidophilus (Probiotic) 1 Each Capsule, 1 CAP PO DAILY, (Reported) Losartan/Hydrochlorothiazide (Losartan-Hctz 100-25 mg Tab) 1 Tab Tab, 1 TAB PO DAILY, (Reported) Multivitamin (Multivitamin) 1 Each Tablet, 1 EACH PO DAILY, (Reported) Rivaroxaban (Xarelto) 10 Mg Tablet, 10 MG PO QHS, (Reported) FOR 12 DAYS, STARTED 02/16/20 Scheduled PRN Acetaminophen (Tylenol Extra Strength) 500 Mg Tablet, 500 MG PO Q6H PRN for PAIN, (Reported) Oxycodone HCl/Acetaminophen (Percocet 5-325 mg Tablet) 1 Each Tablet, 1 TAB PO Q4H PRN for PAIN, (Reported) Oxycodone HCl/Acetaminophen (Percocet 5-325 mg Tablet) 1 Each Tablet, 2 TAB PO Q4H PRN for PAIN Allergies Coded Allergies: No Known Allergies (Unverified , 04/13/17) KAREN BORRERO MD Feb 18, 2020 09:10
[2020-02-18] MEDS: VITAMIN D 1,000 INTERNATIONAL UNITS TABLET PO SCH (10:12)
[2020-02-18] MEDS: LACTOBACILLUS ACIDOPHILUS CAP (BACID) PO SCH (10:13)
[2020-02-18 10:15] VITALS: BP 127/65
[2020-02-18] MEDS: MULTIVITAMINS/MINERALS THERAP 1 TAB PO SCH (10:15)
[2020-02-18] MEDS: ATORVASTATIN 10 MG TAB PO SCH (10:15)
[2020-02-18] MEDS: CitaloPRAM (CeleXA) 20 MG TAB PO SCH (10:16)
[2020-02-18] MEDS ORDERED: RIVAROXABAN 10 MG TAB (XARELTO) PO SCH (18:00)
== END 2020-02-18 11:31 | disposition home or self-care (01) ==
LOC: EDBD 08:29 → M ED 08:29 → M ED INP 08:30 → M MS5PR 15:45
PROVIDERS: ADMIT Internal Medicine; ATTEND Internal Medicine
DX: M25.562 Pain in left knee (principal); T84.84XA Pain due to internal orthopedic prosthetic devices, implants and grafts, initial encounter; I10 Essential (primary) hypertension; E78.2 Mixed hyperlipidemia; E55.9 Vitamin D deficiency, unspecified; E66.9 Obesity, unspecified; M17.9 Osteoarthritis of knee, unspecified; F32.9 Major depressive disorder, single episode, unspecified; Z79.899 Other long term (current) drug therapy; Z87.891 Personal history of nicotine dependence
CPT/HCPCS: 36415; 80048; 83735; 85025; 85652; 86140; 90682; 93971; 97161; 99285; G0008

== ENCOUNTER → 2020-09-18 | Outpatient (REF) | payer BC ==
[~2020-09-18] MED LIST changes: +CALC600T60 PO
[2020-09-18 16:37] LABS: BLOOD UREA NITROGEN 16 MG/DL (7-18); CALCIUM LEVEL 9.5 MG/DL (8.8-10.2); CARBON DIOXIDE LEVEL 32 MEQ/L (21-32); CHLORIDE LEVEL 100 MEQ/L (98-107); CREATININE FOR GFR 0.77 MG/DL (0.55-1.30); GLOMERULAR FILTRATION RATE > 60.0 (>45); GLUCOSE, FASTING 109 MG/DL (70-100); POTASSIUM SERUM 3.6 MEQ/L (3.5-5.1); SODIUM LEVEL 138 MEQ/L (136-145)
== END ==
LOC: M SFHCCLAY 11:06
PROVIDERS: ATTEND Family Medicine
DX: I10 Essential (primary) hypertension (principal)

== ENCOUNTER → 2021-08-23 | Outpatient (REF) | payer BC ==
[~2021-08-23] MED LIST changes: -D31000TA2 PO; +VITA100093 PO
[2021-08-23 16:22] LABS: HEMOGLOBIN A1c 5.5 %
[2021-08-23 16:34] LABS: ALBUMIN 3.5 GM/DL (3.2-5.2); ALT/SGPT 31 U/L (12-78); BILIRUBIN,TOTAL 0.4 MG/DL (0.2-1.0); BLOOD UREA NITROGEN 19 MG/DL (7-18); CALCIUM LEVEL 9.4 MG/DL (8.8-10.2); CARBON DIOXIDE LEVEL 31 MEQ/L (21-32); CHLORIDE LEVEL 105 MEQ/L (98-107); CHOLESTEROL LEVEL 195 MG/DL (<200); CHOLESTEROL RISK RATIO 3.095 (<5); CREATININE FOR GFR 0.91 MG/DL (0.55-1.30); GLOMERULAR FILTRATION RATE > 60.0 (>45); GLUCOSE, FASTING 173 MG/DL (70-100); HDL CHOLESTEROL 63 MG/DL (>40); LDL CHOLESTEROL 93 MG/DL (<100); NON-HDL-C 132 MG/DL; POTASSIUM SERUM 4.1 MEQ/L (3.5-5.1); SODIUM LEVEL 141 MEQ/L (136-145); TOTAL PROTEIN 6.9 GM/DL (6.4-8.2); TRIGLYCERIDES LEVEL 193 MG/DL (<150)
== END ==
LOC: M SFHCCLAY 10:59
PROVIDERS: ATTEND Nurse Practitioner Women's Health
DX: I10 Essential (primary) hypertension (principal); E78.2 Mixed hyperlipidemia

== ENCOUNTER → 2022-05-21 | Outpatient (REF) | payer BC | LOC: M SFHCCLAY 10:23 | PROVIDERS: ATTEND Family Medicine | DX: N30.90 Cystitis, unspecified without hematuria (principal) ==

== ENCOUNTER → 2023-05-25 | Outpatient (CLI) | payer BC | LOC: M WHC 13:23 | PROVIDERS: ATTEND Advanced Practice Midwife | DX: Z12.31 Encounter for screening mammogram for malignant neoplasm of breast (principal) ==

== ENCOUNTER → 2023-06-04 | Outpatient (REF) | payer BC ==
[2023-06-05 12:01] LABS: APPEARANCE, URINE HAZY (CLEAR); BACTERIA, URINE AUTO 1+ (NEGATIVE); BILIRUBIN, URINE AUTO NEGATIVE (NEGATIVE); BLOOD, URINE BLOOD NEGATIVE (NEGATIVE); COLOR, URINE YELLOW (YELLOW); GLUCOSE, URINE (UA) AUTO NEGATIVE (NEGATIVE); KETONE, URINE AUTO NEGATIVE (NEGATIVE); LEUKOCYTE ESTERASE, URINE AUTO 1+ (NEGATIVE); MUCUS, URINE SMALL (NEGATIVE); NITRITE, URINE AUTO NEGATIVE (NEGATIVE); PROTEIN, URINE AUTO NEGATIVE (NEGATIVE); RBC, URINE AUTO 3 /HPF (0-3); SPECIFIC GRAVITY URINE AUTO 1.021 (1.002-1.035); SQUAMOUS EPITHELIAL CELL UR AU 4 /HPF (0-6); WBC, URINE AUTO 30 /HPF (0-3)
== END ==
LOC: M SFHCCLAY 15:45
PROVIDERS: ATTEND Family Medicine
DX: R30.0 Dysuria (principal)

== ENCOUNTER 2023-07-20 12:22 | Day surgery (SDC) | payer BC ==
[~2023-07-20] VITALS: Ht 170.2 cm; Wt 108.8 kg
[~2023-07-20 12:22] MED LIST changes: +NS 1,000 ML IV ONE
[2023-07-20] MEDS ORDERED: LIDOCAINE 2% 100MG/5ML SDV (FOR ANES.) As Ordered ONE (14:24)
[2023-07-20] MEDS ORDERED: propofoL 200 MG/20 ML VIAL As Ordered ONE (14:24)
[2023-07-20 14:55] VITALS: TEMP 98.4
[2023-07-20 15:15] VITALS: BP 120/60; O2SAT 96
== END 2023-07-20 15:23 | disposition home or self-care (01) ==
LOC: M OPP 12:22
PROVIDERS: ATTEND Internal Medicine Gastroenterology
DX: D12.6 Benign neoplasm of colon, unspecified (principal); K64.2 Third degree hemorrhoids; K57.32 Diverticulitis of large intestine without perforation or abscess without bleeding; K57.30 Diverticulosis of large intestine without perforation or abscess without bleeding; Z79.82 Long term (current) use of aspirin; Z79.899 Other long term (current) drug therapy

== ENCOUNTER → 2023-12-09 | Outpatient (REF) | payer BC ==
[~2023-12-09] MED LIST changes: -NS 1,000 ML IV ONE
[2023-12-09 17:31] LABS: ALBUMIN 3.5 G/DL (3.2-5.2); ALKALINE PHOSPHATASE 83 U/L (46-116); ALT/SGPT 20 U/L (7.0-40); AST/SGOT 9 U/L (<34); BILIRUBIN,TOTAL 0.6 MG/DL (0.3-1.2); BLOOD UREA NITROGEN 17 MG/DL (9-23); CALCIUM LEVEL 9.4 MG/DL (8.3-10.6); CARBON DIOXIDE LEVEL 32 MMOL/L (20-31); CHLORIDE LEVEL 102 MMOL/L (98-107); CHOLESTEROL LEVEL 233 MG/DL (<200); CHOLESTEROL RISK RATIO 3.92 (<5); GLOMERULAR FILTRATION RATE > 60.0 (>39); GLUCOSE, FASTING 103 MG/DL (74-106); HDL CHOLESTEROL 59.3 MG/DL (>40); LDL CHOLESTEROL 152.3 MG/DL (<100); NON-HDL-C 173.7 MG/DL; POTASSIUM SERUM 4.1 MMOL/L (3.5-5.1); SODIUM LEVEL 136 MMOL/L (136-145); TOTAL PROTEIN 6.7 G/DL (5.7-8.2); TRIGLYCERIDES LEVEL 107 MG/DL (<150)
[2023-12-09 17:32] LABS: BASO # 0.1 10^3/uL (0.0-0.2); BASO % 1.5 % (0.0-1.0); EOS # 0.1 10^3/uL (0.0-0.5); EOS % 2.5 % (0.0-3.0); HEMATOCRIT 39.2 % (36.0-47.0); HEMOGLOBIN 12.7 g/dl (12.0-15.5); LYMPH % 37.6 % (24.0-44.0); MEAN CORPUSCULAR HEMOGLOBIN 30.5 pg (27.0-33.0); MEAN CORPUSCULAR HGB CONC 32.4 g/dl (32.0-36.5); MEAN CORPUSCULAR VOLUME 94.2 fl (80.0-96.0); MONO # 0.5 10^3/uL (0.0-0.8); MONO % 10.2 % (2.0-8.0); NEUTROPHILS # 2.5 10^3/uL (1.5-8.5); NEUTROPHILS % 47.8 % (36.0-66.0); PLATELET COUNT, AUTOMATED 232 10^3/uL (150-450); RED BLOOD COUNT 4.16 10^6/uL (4.00-5.40); WHITE BLOOD COUNT 5.3 10^3/uL (4.0-10.0)
== END ==
LOC: M SFHCCLAY 12:18
PROVIDERS: ATTEND Family Medicine
DX: I10 Essential (primary) hypertension (principal); E78.2 Mixed hyperlipidemia

== ENCOUNTER → 2024-04-20 | Outpatient (CLI) | payer BC | LOC: M CLY 12:00 | PROVIDERS: ATTEND Family Medicine | DX: M19.011 Primary osteoarthritis, right shoulder (principal) ==

== ENCOUNTER → 2024-04-20 | Outpatient (CLI) | payer BC | LOC: M CLY 11:34 | PROVIDERS: ATTEND Family Medicine | DX: Z53.9 Procedure and treatment not carried out, unspecified reason (principal) ==

== ENCOUNTER → 2024-06-09 | Outpatient (REF) | payer BC ==
[2024-06-09 18:44] LABS: ALT/SGPT 21 U/L (7.0-40); BLOOD UREA NITROGEN 17 MG/DL (9-23); CALCIUM LEVEL 10.5 MG/DL (8.3-10.6); CARBON DIOXIDE LEVEL 30 MMOL/L (20-31); CHLORIDE LEVEL 103 MMOL/L (98-107); CHOLESTEROL LEVEL 236 MG/DL (<200); CHOLESTEROL RISK RATIO 3.54 (<5); GLOMERULAR FILTRATION RATE > 60.0 (>39); GLUCOSE, FASTING 103 MG/DL (74-106); HDL CHOLESTEROL 66.6 MG/DL (>40); LDL CHOLESTEROL 134.6 MG/DL (<100); NON-HDL-C 169.4 MG/DL; POTASSIUM SERUM 4.8 MMOL/L (3.5-5.1); SODIUM LEVEL 140 MMOL/L (136-145); TRIGLYCERIDES LEVEL 174 MG/DL (<150)
== END ==
LOC: M SFHCCLAY 11:01
PROVIDERS: ATTEND Physician Assistant
DX: E78.2 Mixed hyperlipidemia (principal)

== ENCOUNTER → 2025-05-24 | Outpatient (REF) | payer BC ==
[2025-05-24 14:08] LABS: ESTIMATED AVERAGE GLUCOSE 117.0 MG/DL (60-110)
[2025-05-24 14:14] LABS: ALT/SGPT 24 U/L (7.0-40); AST/SGOT 18 U/L (<34); CALCIUM LEVEL 8.8 MG/DL (8.3-10.6); CARBON DIOXIDE LEVEL 32 MMOL/L (20-31); CHLORIDE LEVEL 102 MMOL/L (98-107); CHOLESTEROL LEVEL 164 MG/DL (<200); CHOLESTEROL RISK RATIO 2.42 (<5); CREATININE FOR GFR 0.71 MG/DL (0.55-1.30); GLOMERULAR FILTRATION RATE > 90.0 (>39); LDL CHOLESTEROL 56.5 MG/DL (<100); NON-HDL-C 96.3 MG/DL; POTASSIUM SERUM 4.9 MMOL/L (3.5-5.1); SODIUM LEVEL 143 MMOL/L (136-145); TRIGLYCERIDES LEVEL 199 MG/DL (<150)
== END ==
LOC: M SFHCCLAY 08:15
PROVIDERS: ATTEND Physician Assistant
DX: I10 Essential (primary) hypertension (principal); E78.2 Mixed hyperlipidemia; F32.0 Major depressive disorder, single episode, mild; K21.9 Gastro-esophageal reflux disease without esophagitis